=== PATIENT | female | born 1940 | race Caucasian/White ===

== ENCOUNTER 2025-06-28 21:16 | Emergency (ER) | payer MEDICARE, SELFPAY ==
[2025-06-28 21:30] VITALS: BMI 24.4
[2025-06-28] MEDS: VENTOLIN NEBULES 2.5 MG INH (21:54)
[2025-06-28 21:57] LABS: COVID-19 Antigen Negative (Negative)
--- NOTE | 2025-06-28 22:24 | ED.GENMED ---
History of Present Illness
General
Chief Complaint: Cough
Time Seen by Provider: 06/28/25 21:33
History of Present Illness
History of Present Illness:
84-year-old female presents to the emergency department for evaluation of cough and cold symptoms for the past 2 to 3 days. Also reporting voice hoarseness and some intermittent shortness of breath. Denies any chest pain or dyspnea at present.
Using [id number] Tums with modest improvement. Notes that she is currently on cefpodoxime for a kidney infection.
Review of Systems
Review of Systems
Allergies reviewed?: Yes
All Other Systems: ROS reviewed and negative except as documented in HPI and ROS
Phy Exam
Physical Exam
Physical Exam:
GEN: Well appearing, NAD, WDWN
HEENT: Oral mucosa moist, no scleral icterus
Cardiac: Regular rate and rhythm, no murmur
Lung: No respiratory distress, no tachypnea, lungs clear to auscultation bilaterally
MSK: No gross deformity or injuries
Skin: Good color, no pallor or jaundice, no rashes
Neuro: AO x3, moves all extremities freely
Psych: Calm, cooperative
Course
Orders/Labs/Results
Orders:
Orders
06/28/25 21:33
COVID-19 Antigen Urgent
Source: Nasal Swab
Influenza A+B Rapid Molecular Urgent
VIJAYA Source: Nasal Swab
Specimen Description:
06/28/25 21:52
Albuterol Nebs [Ventolin Nebules] 2.5 mg INH R NOW STA
Vital Signs
Initial and Last Documented VS:
Initial Vital Signs
Temp Pulse Resp Pulse Ox
97.8 F 104 20 97
06/28/25 21:18 06/28/25 21:18 06/28/25 21:18 06/28/25 21:18
Last Documented Vital Signs
Temp Pulse Resp BP Pulse Ox
97.8 F 80 20 126/70 99
06/28/25 21:18 06/28/25 22:30 06/28/25 22:30 06/28/25 22:30 06/28/25 22:30
MDM/Problems Addressed
MDM/Problems Addressed:
COVID and flu are negative. Patient was given a nebulizer treatment with modest improvement in symptoms. Likely self-limited viral syndrome particularly given clear lungs and current use of cefpodoxime which would cover typical pneumonia.
Discussed supportive care
*Pulse Oximetry
SaO2: 97
Oxygen Mode of Delivery: Room air
Patient hypoxic: no
*Critical Care Note
Total Time (30-74mins, 75-104mins- exclusive of procedures): Not Applicable
ED Attending Note
-
Portions of this chart may have been created with voice recognition software.� Occasional wrong word or��sound alike� substitutions may have occurred due to the inherent limitations of voice recognition software.
Discharge Plan
Departure
Patient Disposition: Home (Routine Discharge)
Date of Disposition: 06/28/25
Time of Disposition: 22:26
Patient with high blood pressure during this ER visit?: No
Discharge Problem:
Upper respiratory infection, viral
Instructions: Viral Upper Respiratory Infection, Adult (DC)
Prescriptions:
New
albuterol sulfate [Ventolin HFA] 90 mcg/actuation HFA aerosol inhaler
2 puff inhalation Q6H PRN (Reason: shortness of breath or wheezing) Qty: 6.7 0RF
Referrals:
Chato Macedo [Other]
PRIVATE,PHYSICIAN [Family Provider, Internal Medicine]
Interventions
Interventions:
*General Assessment Last Done: 06/28/25 21:18
*Neglect/Abuse Screening Last Done: 06/28/25 21:18
*ED COVID-19 Vaccine History Last Done: 06/28/25 21:30
*ED Influenza Vaccine History Last Done: 06/28/25 21:30
[facility] Fall Risk Assessment Tool Last Done: 06/28/25 21:30
*Risk Screen - Suicide (C-SSRS) Last Done: 06/28/25 21:18
*Nursing Disposition Last Done: 06/28/25 22:30
ED- Pulmonary Assessment Last Done: 06/28/25 21:37
Discharge Date and Time
Discharge Date/Time: 06/28/25 22:30
Print Language: OCCITAN
[2025-06-28 22:30] VITALS: BP 126/70
== END 2025-06-28 22:30 | disposition home or self-care (01) ==
LOC: EMR 21:16
PROVIDERS: EMERGENCY PHYSICIAN Student in an Organized Health Care Education/Training Program
DX: J06.9 Acute upper respiratory infection, unspecified (principal); B97.89 Other viral agents as the cause of diseases classified elsewhere; Z79.2 Long term (current) use of antibiotics; Z11.52 Encounter for screening for COVID-19
CPT/HCPCS: 99283; 94640; 87502; 87811